=== PATIENT | male | born 2000 | race Caucasian/White ===

== ENCOUNTER 2023-10-14 13:28 | Day surgery (SDC) | payer OTHER ==
[2023-10-14 14:03] LABS: #Basophils 0.1 thou/uL (0.0-0.2); #Eosinphils 0.2 thou/uL (0.0-0.7); #Monocytes 0.5 thou/uL (0.11-0.59); #Neutrophils 5.2 thou/uL (1.40-6.50); %Basophils 0.6 % (0.0-1.0); %Eosinophils 1.7 % (0.0-10.0); %Monocytes 6.3 % (0.0-10.0); %Neutrophils 60.2 % (42.0-75.0); Hematocrit 45.1 % (42.0-52.0); Hemoglobin 15.7 g/dL (14.0-18.0); Mean Corpuscular HGB CONC 34.8 g/dL (32.0-36.0); Mean Corpuscular Volume 89.1 fl (78.0-98.0); Mean Platelet Volume 8.3 fL (7.4-10.4); Platelet Count 260 10x3/uL (130-400); Red Blood Cell (RBC) Count 5.06 mill/uL (4.70-6.10); White Blood Cell (WBC) Count 8.6 10x3/uL (4.8-10.8)
[2023-10-14] MEDS ORDERED: Ketorolac Tromethamine 30 MG/ML VIAL ONE (14:06)
[2023-10-14] MEDS ORDERED: Ondansetron PF 4 MG/2 ML Vial ONE ×3 (14:07→16:20)
[2023-10-14] MEDS ORDERED: Morphine 4 MG/ML VIAL ONE (14:07)
[2023-10-14 14:22] LABS: ALT (SGPT) 20 U/L (8-55); AST (SGOT) 23 U/L (5-34); Albumin 5.2 g/dL (3.5-5.0); Alkaline Phosphatase 61 U/L (40-110); Anion Gap 16 mmol/L (10-20); BUN (Urea Nitrogen) 18 mg/dL (8.9-20.6); Bilirubin, Total 0.7 mg/dL (0.2-1.2); Calc. Creatinine Clearance 0 mL/min (70-130); Calcium 9.9 mg/dL (7.8-10.44); Carbon Dioxide 24 mmol/L (22-29); Chloride 101 mmol/L (98-107); Estimated GFR 98; Globulin 2.2 g/dL (2.4-3.5); Glucose 119 mg/dL (70-105); Potassium 3.6 mmol/L (3.5-5.1); Protein, Total 7.4 g/dL (6.0-8.3); Sodium 137 mmol/L (136-145)
[2023-10-14] MEDS ORDERED: fentaNYL 50 mcg/mL 1 mL Vial ONE (14:47)
[2023-10-14] MEDS ORDERED: Sodium Chloride 0.9% 100 ML ONE (15:32)
[2023-10-14] MEDS ORDERED: CEFAZOLIN 2 GM VIAL ONE (15:32)
[2023-10-14] MEDS ORDERED: Lidocaine 2% PF 5 ML VIAL ONE (15:43)
[2023-10-14] MEDS ORDERED: HYDROmorphone 2 MG/ML VIAL ONE (16:04)
[2023-10-14] MEDS ORDERED: Dexamethasone 4 mg/ml Vial ONE (16:04)
[2023-10-14] MEDS ORDERED: Rocuronium Bromide 10 MG/ML (10ML VIAL) ONE (16:04)
[2023-10-14] MEDS ORDERED: PROPOFOL 20 ML ONE (16:04)
[2023-10-14] MEDS ORDERED: Succinylcholine 200 MG/10 ml SYRINGE FS ONE ×2 (16:12→16:20)
[2023-10-14] MEDS ORDERED: PROPOFOL 200 MG/20 ML VIAL ONE (16:20)
[2023-10-14] MEDS ORDERED: Dexamethasone 20 MG/5 ML VIAL ONE (16:20)
[2023-10-15 12:24] LABS: Syphilis Antibody Nonreactive (Nonreactive); Syphilis Antibody Index 0.04 S/CO (<1.00 Non-Reactive)
== END 2023-10-14 19:11 | disposition home or self-care (01) ==
LOC: ERS 13:28 → SDC 16:00
PROVIDERS: ATTEND Urology
PROC: 0VSB0ZZ Reposition Left Testis, Open Approach (ICD-10-PCS; principal; 2023-10-14)
DX: N44.00 Torsion of testis, unspecified (principal)
CPT/HCPCS: 76870; 80053; 85025; 86780; 93976; J1100; J1170; J1885; J2001; J2270; J2405; J2704; J3010; J3490